=== PATIENT | female | born 1975 | race Caucasian/White ===

== ENCOUNTER 2019-07-15 12:52 | Emergency (ER) | payer OTHER ==
[~2019-07-15] VITALS: Ht 152.4 cm; Wt 52.2 kg
[2019-07-15] MEDS ORDERED: ASPIRIN 325 MG TABLET PO ONE (13:15)
[2019-07-15] MEDS: MORPHINE SULFATE 4 MG/ML VIAL. IV/SQ PRN ×2 (13:22→13:57)
[2019-07-15] MEDS: NITROGLYCERIN SUBLINGUAL 0.4 MG BOTTLE OF 25. SL PRN ×3 (13:23→14:01)
[2019-07-15 13:30] LABS: BASO # 0.1 x10^3/uL (0.0-0.2); BASO % 1 % (0-3); EOS # 0.3 x10^3/uL (0.0-0.7); EOS % 3 % (0-3); HEMATOCRIT 43.5 % (36.0-47.0); HEMOGLOBIN 14.9 g/dL (12.0-15.5); LYMPH # 2.5 x10^3/uL (1.0-4.8); LYMPH % 22 % (24-48); MEAN CORPUSCULAR HEMOGLOBIN 30 pg (25-35); MEAN CORPUSCULAR HGB CONC 34 g/dL (31-37); MEAN CORPUSCULAR VOLUME 89 fL (79-100); MONO # 0.8 x10^3/uL (0.0-1.1); MONO % 7 % (0-9); NEUT # 7.7 x10^3/uL (1.8-7.7); NEUT % 67 % (31-73); PLATELET COUNT 253 x10^3/uL (140-400); RED BLOOD COUNT 4.91 x10^6/uL (3.50-5.40); RED CELL DISTRIBUTION WIDTH 13.1 % (11.5-14.5); WHITE BLOOD COUNT 11.4 x10^3/uL (4.0-11.0)
--- NOTE | 2019-07-15 13:37 | RAD ---
PORTABLE CHEST 1V History: Chest pain for one month Comparison: None. Findings: Single view of the chest is submitted. There is no infiltrate, pneumothorax, or effusion. The pericardial cardiac silhouette is within normal limits in size. Impression: 1. There is no radiographic evidence of acute cardiopulmonary disease. Electronically signed by: Kevan Avila MD (07/15/2019 1:34 PM) [facility]
[2019-07-15 13:47] LABS: CALCIUM 9.6 mg/dL (8.5-10.1); CREATININE 0.8 mg/dL (0.6-1.0); GFR 78.3; POTASSIUM 4.1 mmol/L (3.5-5.1)
[2019-07-15 13:52] LABS: ALBUMIN 3.8 g/dL (3.4-5.0); ALBUMIN/GLOBULIN RATIO 1.1 (1.0-1.7); MAGNESIUM 1.5 mg/dL (1.8-2.4); TOTAL BILIRUBIN 0.6 mg/dL (0.2-1.0); TOTAL PROTEIN 7.4 g/dL (6.4-8.2)
--- NOTE | 2019-07-15 13:56 | PHYS DOC ---
Past Medical History Past Medical History: A-Fib, Diabetes-Type II, Hypertension, SD, Pneumonia, TIA (TIEN IRBY APRN) Past Surgical History: Appendectomy, , Tonsillectomy (TIEN IRBY APRN) Alcohol Use: None Drug Use: None (TIEN IRBY APRN) Adult General Chief Complaint Chief Complaint: CHEST PAIN HPI HPI Patient is a 44 year old female with hx of uncontrolled of DMII, HTN, Afib, current smoker who presents with a productive cough with yellow sputum for 1-1/2 weeks as well as shortness of breath. Patient states sometime this morning she developed 10 out of 10 left rib pain only when she takes a deep breath or coughs. Patient also reports for the last 1-1/2 weeks she's had intermittent episodes fevers. Patient states she normally goes to [facility] but she was visiting a friend when her symptoms began and decided to come to [facility]. Denies anything specifically relieving her pain. (TIEN IRBY APRN) Review of Systems Review of Systems Constitutional: Denies fever or chills [] Eyes: Denies change in visual acuity, redness, or eye pain [] HENT: Denies nasal congestion or sore throat [] Respiratory: Reports cough and shortness of breath Cardiovascular: Reports chest pain GI: Denies abdominal pain, nausea, vomiting, bloody stools or diarrhea [] : Denies dysuria or hematuria [] Musculoskeletal: Denies back pain or joint pain [] Integument: Denies rash or skin lesions [] Neurologic: Denies headache, focal weakness or sensory changes [] All other systems were reviewed and found to be within normal limits, except as documented in this note. (TIEN IRBY APRN) Current Medications Current Medications Current Medications Medications (Trade) Dose Ordered Sig/Lilian Start Time Stop Time Status Last Admin Dose Admin Aspirin (Anju Aspirin) 325 mg 1X ONCE 07/15/19 13:15 07/15/19 13:18 DC 07/15/19 13:22 325 MG Insulin Human Regular (HumuLIN R VIAL) 6 unit 1X ONCE 07/15/19 14:15 07/15/19 14:16 DC 07/15/19 14:35 6 UNIT Morphine Sulfate (Morphine Sulfate) 4 mg PRN Q15MIN PRN 07/15/19 13:15 07/15/19 15:05 DC 07/15/19 13:57 4 MG Nitroglycerin (Nitrostat) 0.4 mg PRN Q5MIN PRN 07/15/19 13:15 07/15/19 15:05 DC 07/15/19 14:01 0.4 MG (GHAZAL BROWN MD) Allergies Allergies Allergies Coded Allergies Type Severity Reaction Last Updated Verified insulin detemir Allergy Intermediate 07/15/19 Yes (GHAZAL BROWN MD) Physical Exam Physical Exam Constitutional: Well developed, well nourished, no acute distress, non-toxic flako earance. [] HENT: Normocephalic, atraumatic, bilateral external ears normal, oropharynx moist, no oral exudates, nose normal. [] Eyes: PERRLA, EOMI, conjunctiva normal, no discharge. [] Neck: Normal range of motion, no tenderness, supple, no stridor. [] Cardiovascular:Heart rate regular rhythm, no murmur [] Lungs & Thorax: Bilateral breath sounds clear to auscultation [] Abdomen: Bowel sounds normal, soft, no tenderness, no masses, no pulsatile masses. [] Skin: Warm, dry, no erythema, no rash. [] Back: No tenderness, no CVA tenderness. [] Extremities: No tenderness, no cyanosis, no clubbing, ROM intact, no edema. [] Neurologic: Alert and oriented X 3, normal motor function, normal sensory function, no focal deficits noted. [] Psychologic: Affect normal, judgement normal, mood normal. [] (TIEN IRBY APRN) Current Patient Data Vital Signs Vital Signs Date Time Temp Pulse Resp B/P (MAP) Pulse Ox O2 Delivery O2 Flow Rate FiO2 07/15/19 14:30 97 18 107/81 (90) 97 Room Air 07/15/19 13:00 98.4 98.4 (GHAZAL BROWN MD) Lab Values Laboratory Tests Test 07/15/19 13:00 07/15/19 14:00 White Blood Count 11.4 x10^3/uL (4.0-11.0) H Red Blood Count 4.91 x10^6/uL (3.50-5.40) Hemoglobin 14.9 g/dL (12.0-15.5) Hematocrit 43.5 % (36.0-47.0) Mean Corpuscular Volume 89 fL (79-100) Mean Corpuscular Hemoglobin 30 pg (25-35) Mean Corpuscular Hemoglobin Concent 34 g/dL (31-37) Red Cell Distribution Width 13.1 % (11.5-14.5) Platelet Count 253 x10^3/uL (140-400) Neutrophils (%) (Auto) 67 % (31-73) Lymphocytes (%) (Auto) 22 % (24-48) L Monocytes (%) (Auto) 7 % (0-9) Eosinophils (%) (Auto) 3 % (0-3) Basophils (%) (Auto) 1 % (0-3) Neutrophils # (Auto) 7.7 x10^3/uL (1.8-7.7) Lymphocytes # (Auto) 2.5 x10^3/uL (1.0-4.8) Monocytes # (Auto) 0.8 x10^3/uL (0.0-1.1) Eosinophils # (Auto) 0.3 x10^3/uL (0.0-0.7) Basophils # (Auto) 0.1 x10^3/uL (0.0-0.2) D-Dimer (Maria Victoria) < 0.27 ug/mlFEU Sodium Level 138 mmol/L (136-145) Potassium Level 4.1 mmol/L (3.5-5.1) Chloride Level 101 mmol/L (98-107) Carbon Dioxide Level 23 mmol/L (21-32) Anion Gap 14 (6-14) Blood Urea Nitrogen 20 mg/dL (7-20) Creatinine 0.8 mg/dL (0.6-1.0) Estimated GFR (Cockcroft-Gault) 78.3 BUN/Creatinine Ratio 25 (6-20) H Glucose Level 356 mg/dL (70-99) H Calcium Level 9.6 mg/dL (8.5-10.1) Magnesium Level 1.5 mg/dL (1.8-2.4) L Total Bilirubin 0.6 mg/dL (0.2-1.0) Aspartate Amino Transferase (AST) 10 U/L (15-37) L Alanine Aminotransferase (ALT) 8 U/L (14-59) L Alkaline Phosphatase 82 U/L (46-116) Creatine Kinase 40 U/L (26-192) Creatine Kinase MB (Mass) < 0.5 ng/mL (0.0-3.6) Creatine Kinase MB Relative Index % (0-4) Troponin I Quantitative < 0.017 ng/mL (0.000-0.055) XM-Grj-I-Type Natriuretic Peptide 45 pg/mL (0-124) Total Protein 7.4 g/dL (6.4-8.2) Albumin 3.8 g/dL (3.4-5.0) Albumin/Globulin Ratio 1.1 (1.0-1.7) Thyroid Stimulating Hormone (TSH) 3.612 uIU/mL (0.358-3.74) Urine Collection Type Unknown Urine Color Yellow Urine Clarity Cloudy Urine pH 6.5 Urine Specific [place] >=1.030 Urine Protein Negative mg/dL (NEG-TRACE) Urine Glucose (UA) >=1000 mg/dL (NEG) Urine Ketones (Stick) 15 mg/dL (NEG) Urine Blood Negative (NEG) Urine Nitrite Positive (NEG) Urine Bilirubin Negative (NEG) Urine Urobilinogen Dipstick 1.0 mg/dL (0.2 mg/dL) Urine Leukocyte Esterase Negative (NEG) Urine RBC 3-5 /HPF (0-2) Urine WBC 1-4 /HPF (0-4) Urine Squamous Epithelial Cells Few /LPF Urine Bacteria Mod /HPF (0-FEW) Urine Mucus Mod /LPF Urine Opiates Screen Pos (NEG) Urine Methadone Screen Neg (NEG) Urine Barbiturates Neg (NEG) Urine Phencyclidine Screen Neg (NEG) Urine Amphetamine/Methamphetamine Neg (NEG) Urine Benzodiazepines Screen Neg (NEG) Urine Cocaine Screen Neg (NEG) Urine Cannabinoids Screen Pos (NEG) Urine Ethyl Alcohol Neg (NEG) Laboratory Tests 07/15/19 13:00 Laboratory Tests 07/15/19 13:00 (GHAZAL BROWN MD) EKG EKG [address] Davis [facility] rhythm HR 93 no STEMI[] (TIEN IRBY APRN) Radiology/Procedures Radiology/Procedures []PROCEDURE: PORTABLE CHEST 1V PORTABLE CHEST 1V History: Chest pain for one month Comparison: None. Findings: Single view of the chest is submitted. There is no infiltrate, pneumothorax, or effusion. The pericardial cardiac silhouette is within normal limits in size. Impression: 1. There is no radiographic evidence of acute cardiopulmonary disease. Electronically signed by: Yang Pyle MD (07/15/2019 1:34 PM) [facility] DICTATED and SIGNED BY: YANG PYLE MD DATE: 07/15/19 1334 (TIEN IRBY APRN) Course & Med Decision Making Course & Med Decision Making Pertinent Labs and Imaging studies reviewed. (See chart for details) This is a 44-year-old female patient presented to the ED today with complaints of cough, shortness of breath and a fever intermittently for 1-1/2 weeks. She is also complaining of left rib pain that began this morning. She is a smoker encouraged to consider smoking cessation. EKG is negative, chest xray is negative. Troponin is normal, CBC with a WBC of 11.4, CMP with glucose of 356, anion gap is normal. Patient states she has history of uncontrolled diabetes for years. She was given insulin in the ED. Urine analysis is noted for nitrites. Heart score 3 Patient was offered admission to the hospital, she is in the ED with the son who was not happy to hear we are considering admitting the mother, patient states she does not want to be admitted she will follow-up with her own doctor next week. She was discharged with cephalexin for UTI. Encouraged to ensure she is using her insulin for diabetes as well as taking the rest of her medications. Provided return precautions and discharged in stable condition. (TIEN IRBY APRN) Course & Med Decision Making Staff Physician Addendum: I was working in the ER during the course of this patient's visit. I was available for consultation as needed, but I was not directly involved in the care of this patient. (GHAZAL BROWN MD) Dragon Disclaimer Dragon Disclaimer This electronic medical record was generated, in whole or in part, using a voice recognition dictation system. (TIEN IRBY APRN) The HEART Score for CP Pts HEART Score for Chest Pain: HEART Score for Chest Pain Response (Comments) Value History Slighlty/Non-Suspicious 0 ECG Normal 0 Age < 45 0 Risk Factors >3 Risk Factors or Hx CAD 2 Troponin < Normal Limit 0 Total 2 Risk Factors: Risk Factors: DM, Current or recent (<one month) smoker, HTN, HLP, family history of CAD, obesity. Risk Scores: Score 0 - 3: 2.5% MACE over next 6 weeks - Discharge Home Score 4 - 6: 20.3% MACE over next 6 weeks - Admit for Clinical Observation Score 7 - 10: 72.7% MACE over next 6 weeks - Early Invasive Strategies (TIEN IRBY APRN) Departure Departure Impression: Primary Impression: Chest pain Additional Impressions: UTI (urinary tract infection) Smoking addiction Pleurisy Bronchitis Disposition: HOME, SELF-CARE Condition: STABLE Referrals: UNKNOWN PCP NAME (PCP) follow up next week with your doctor Patient Instructions: Acute Bronchitis, Pleurisy, [id number], Urinary Tract Infection Additional Instructions: You were evaluated in the emergency room, your urine was noted to have infection we put on antibiotics please ensure you complete them, your chest x-ray was negative for any acute findings. Your glucose was 356-this is high. Please ensure you are using your insulin. Consider smoking cessation. Follow-up with your doctor on Wednesday. Scripts Cephalexin (CEPHALEXIN) 500 Mg Tablet 1 TAB PO BID, #14 TAB Prov: TIEN IRBY APRN 07/15/19 Albuterol Sulfate (Proair Hfa) 8.5 Gm Hfa.aer.ad 2 PUFF IH PRN Q4-6HRS PRN for wheezing for 21 Days, #1 INHALER 0 Refills Prov: TIEN IRBY APRN 07/15/19 Problem Qualifiers Primary Impression: Chest pain Chest pain type: unspecified Qualified Codes: R07.9 - Chest pain, unspecified Additional Impressions: UTI (urinary tract infection) Urinary tract infection type: site unspecified Hematuria presence: without hematuria Qualified Codes: N39.0 - Urinary tract infection, site not specified TIEN IRBY APRN Jul 15, 2019 13:56 GHAZAL BROWN MD Jul 15, 2019 17:17
[2019-07-15 14:04] LABS: CREATINE KINASE 40 U/L (26-192)
[2019-07-15 14:10] LABS: BILIRUBIN,URINE NEGATIVE (NEG); CLARITY,URINE CLOUDY; COLOR,URINE YELLOW; NITRITE,URINE POSITIVE (NEG); PH,URINE 6.5; PROTEIN,URINE NEGATIVE (NEG-TRACE)
[2019-07-15] MEDS ORDERED: INSULIN REGULAR 100 UNIT/ML 3ML VIAL. IV ONE (14:15)
[2019-07-15 14:18] LABS: BARBITURATES NEG (NEG); BENZODIAZEPINES NEG (NEG); CANNABINOIDS POS (NEG); COCAINE NEG (NEG); METHADONE NEG (NEG); OPIATES POS (NEG); PHENCYCLIDINE NEG (NEG)
[2019-07-15 14:19] LABS: AMPHETAMINE/METHAMPHETAMINE NEG (NEG)
[2019-07-15 14:20] LABS: BACTERIA,URINE MOD /HPF (0-FEW); SQUAMOUS EPITHELIAL CELL,UR FEW /LPF
[2019-07-15 14:30] VITALS: BP 107/81
[2019-07-15] MEDS ORDERED: ALBU2.5V8 IH (14:47)
[2019-07-15] MEDS ORDERED: CEPH500T PO (14:47)
--- NOTE | 2019-07-15 18:52 | EKG ---
[facility] [address] [place] [address] Test Date: 2019-07-15 Test Time: 13:01:37 Pat Name: OJ HURLEY Department: Room: Gender: F Educational Aid: : 1975 Requested By: TIEN IRBY Order Number: [id number] Reading MD: Measurements Intervals [place] Rate: 93 P: 85 SC: 138 QRS: 50 QRSD: 76 T: 52 QT: 326 QTc: 408 Interpretive Statements SINUS RHYTHM NORMAL ECG RI6.01 No previous ECG available for comparison
== END 2019-07-15 15:00 | disposition home or self-care (01) ==
LOC: ER 12:52
DX: R09.1 Pleurisy (principal); N39.0 Urinary tract infection, site not specified; J40 Bronchitis, not specified as acute or chronic; F17.200 Nicotine dependence, unspecified, uncomplicated; I48.91 Unspecified atrial fibrillation; E11.9 Type 2 diabetes mellitus without complications; I10 Essential (primary) hypertension; I25.2 Old myocardial infarction; Z86.73 Personal history of transient ischemic attack (TIA), and cerebral infarction without residual deficits; Z88.8 Allergy status to other drugs, medicaments and biological substances
CPT/HCPCS: 36415; 71045; 80053; 80307; 81001; 82553; 83735; 83880; 84443; 84484; 85025; 85379; 93005; 96374; 96375; 96376; 99285; J1815; J2270